=== PATIENT | male | born 1965 | race Caucasian/White ===

== ENCOUNTER → 2018-04-01 | Outpatient (CLI) | payer OTHER ==
--- NOTE | 2018-04-01 15:11 | RAD ---
EXAM: Renal sonogram. HISTORY: Renal insufficiency. TECHNIQUE: Sonographic imaging of the kidneys and bladder was performed. COMPARISON: None. FINDINGS: The right kidney measures 12.4 cm [id number]. The right kidney measures 13.1 cm [id number]. No solid or cystic renal lesion is seen. There is no hydronephrosis. The ureteral jets are not seen during the exam. The bladder volume is 89 cc. IMPRESSION: 1. Nonvisualization of the ureteral jets during the exam. 2. Otherwise, unremarkable renal sonogram. Electronically signed by: Haven Carter MD (04/01/2018 3:08 PM) [place] [id number]
== END | disposition home or self-care (01) ==
LOC: US 13:04
PROVIDERS: ATTEND Internal Medicine Nephrology
DX: N18.3 Chronic kidney disease, stage 3 (moderate) (principal)
CPT/HCPCS: 76770